=== PATIENT | male | born 1990 | race Caucasian/White ===

== ENCOUNTER 2021-09-27 12:12 | Emergency (ER) | payer OTHER ==
[2021-09-27 13:30] LABS: Urine Blood Negative (Negative); Urine Glucose Negative (Negative); Urine Protein Negative (Negative); Urine Specific Gravity >=1.030 (1.005-1.030)
[2021-09-27 13:49] LABS: Absolute Lymphocytes (CBC) 1.9 K/uL (0.7-4.9); Basophils % 0.5 % (0-1.3); Hematocrit 44.4 % (39.6-49.0); Lymphocytes % 30.4 % (15.3-44.8); MPV 7.7 fL (7.6-11.3); RBC Red Blood Cell Count 5.23 M/uL (4.33-5.43)
[2021-09-27 14:06] LABS: ALT/SGPT 70 U/L (12-78); AST/SGOT 29 U/L (15-37); Albumin 3.7 g/dL (3.4-5.0); Alkaline Phosphatase 60 U/L (45-117); BUN Blood Urea Nitrogen 9 mg/dL (7-18); Bicarbonate 29 mmol/L (21-32); Bilirubin Direct 0.1 mg/dL (0-0.2); Bilirubin Total 0.5 mg/dL (0.2-1.0); Glucose Level 100 mg/dL (74-106); Lipase 52 U/L (73-393); Potassium 3.8 mmol/L (3.5-5.1); Sodium Level 140 mmol/L (136-145)
--- NOTE | 2021-09-27 14:13 | RAD REPORT ---
[facility] - 09/27/2021 1:54 pm CLINICAL HISTORY: right flank pain COMPARISON: No comparisons TECHNIQUE: CT of the abdomen and pelvis was performed. All CT scans are performed using dose optimization technique as appropriate and may include automated exposure control or mA/KV adjustment according to patient size. FINDINGS: Lower chest: No acute abnormality. Liver: Hepatic steatosis. Biliary: No biliary ductal dilatation. Stomach: No significant focal abnormality. Duodenum: No significant focal abnormality. Pancreas: No significant abnormality. Spleen: No significant abnormality. Adrenal: No suspicious lesions. Kidney/ureter: No hydronephrosis. No renal calculi. Retroperitoneum: No retroperitoneal adenopathy. Vascular: No aneurysm. Bowel: No significant focal abnormality. Normal appendix. Peritoneum: No ascites or free air. Bladder: Grossly unremarkable. Reproductive: No adnexal masses. Bones: No acute fracture. Other: n/a IMPRESSION: No acute intra-abdominal or pelvic finding. Normal appendix.
[2021-09-27 14:18] LABS: Urine Bacteria <20 /HPF (NONE SEEN); Urine RBC <5 /HPF (NONE SEEN)
--- NOTE | 2021-09-27 15:26 | ER ---
Nurse's Notes [facility] Name: Rupert Sheppard Age: 31 yrs Sex: Male : 1990 Arrival Date: 09/27/2021 Time: 12:18 Bed 20 Private MD: Diagnosis: Low back pain Presentation: 09/27 12:38 Chief complaint: Patient states: ABD pain started last night. Took 2 tablets of ch5 antibiotic from his Dentists. Pain is still there but not as bad as last night. Coronavirus screen: Vaccine status: Patient reports receiving the 2nd dose of the covid vaccine. At this time, the client does not indicate any symptoms associated with coronavirus-19. Ebola Screen: Patient negative for fever greater than or equal to 101.5 degrees Fahrenheit, and additional compatible Ebola Virus Disease symptoms Patient denies exposure to infectious person. Patient denies travel to an Ebola-affected area in the 21 days before illness onset. Initial Sepsis Screen: Does the patient meet any 2 criteria? No. Patient's initial sepsis screen is negative. Initial Sepsis Screen: Does the patient have a suspected source of infection? No. Patient's initial sepsis screen is negative. Risk Assessment: Do you want to hurt yourself or someone else? Patient reports no desire to harm self or others. Onset of symptoms was September 26, 2021. 12:38 Method Of Arrival: Ambulatory [facility] 12:38 Acuity: KARINE 3 ch5 Triage Assessment: 12:41 General: Appears in no apparent distress. Behavior is cooperative. Pain: Complains of ch5 pain in Bilateral Flank pain. GI: Reports bloating, Flank Pain. Historical: - Allergies: 12:41 No Known Allergies; ch5 - Home Meds: 12:41 None [Active]; ch5 - PMHx: 12:41 None; ch5 - Immunization history:: Adult Immunizations up to date. - Social history:: Smoking status: Patient denies any tobacco usage or history of. - Family history:: not pertinent. - Hospitalizations: : No recent hospitalization is reported. Screenin:00 Abuse screen: Denies threats or abuse. Nutritional screening: No deficits noted. sl2 Tuberculosis screening: No symptoms or risk factors identified. Fall Risk None identified. Assessment: 13:00 General: Appears in no apparent distress. well developed, Behavior is calm, sl2 cooperative, Reports bilateral flank pain Denies fever, chills. 13:00 Pain: Complains of pain in right mid back and left mid back Pain does not radiate. Pain sl2 currently is 4 out of 10 on a pain scale. Quality of pain is described as burning, aching, Pain began. Neuro: No deficits noted. Cardiovascular: No deficits noted. Respiratory: No deficits noted. GI: No deficits noted. : No deficits noted. EENT: No deficits noted. EENT: No deficits noted. EENT: No deficits noted. Reports sore throat . Derm: No deficits noted. Musculoskeletal: No deficits noted. 14:19 Reassessment: Patient appears in no apparent distress at this time. No changes from ld1 previously documented assessment. Patient and/or family updated on plan of care and expected duration. Pain level reassessed. Patient is alert, oriented x 3, equal unlabored respirations, skin warm/dry/pink. 15:33 Reassessment: Patient appears in no apparent distress at this time. No changes from ld1 previously documented assessment. Patient and/or family updated on plan of care and expected duration. Pain level reassessed. Patient is alert, oriented x 3, equal unlabored respirations, skin warm/dry/pink. 15:33 GI: Bowel sounds present X 4 quads. Abd is soft and non tender. ld1 Vital Signs: 12:38 Pulse 87; Resp 18; Temp 97.8; Pulse Ox 100% ; Weight 181.44 kg; Height 5 ft. 9 in. ch5 (175.26 cm); Pain 3/10; 12:38 BP 146 / 82; ch5 13:00 BP 142 / 78; Pulse 85; Resp 18; Temp 97.8(O); Pulse Ox 99% ; sl2 14:19 BP 132 / 91; Pulse 82; Resp 18; Pulse Ox 99% on R/A; ld1 15:33 BP 129 / 92; Pulse 86; Resp 18; Pulse Ox 99% on R/A; ld1 12:38 Body Mass Index 59.07 (181.44 kg, 175.26 cm) 5 ED Course: 12:18 Patient arrived in ED. mr 12:41 Triage completed. 5 12:41 Arm band placed on right wrist. [facility] 12:43 Chinedu Persaud RN is Primary Nurse. 5 12:45 Drew Acosta MD is Attending Physician. rn 13:00 Patient has correct armband on for positive identification. Bed in low position. 2 13:00 Inserted saline lock: 20 gauge in left antecubital area, using aseptic technique. sl2 13:00 No provider procedures requiring assistance completed. sl2 13:[address] via wheelchair. sl2 13:54 CT Stone Protocol In Process Unspecified. EDVT 13:58 Patient moved back from [place]. 2 14:04 Strep Sent. [facility] 14:04 COVID-19 SARS RT PCR (Document "Date of Onset" if Symptomatic) Sent. [facility] 14:04 Flu Sent. [facility] 14:06 Initial lab(s) drawn, by cath lab tech, sent to lab. Urine collected: clean catch specimen, [facility] COVID swab sent to lab. Flu and/or RSV swab sent to lab. Strep swab sent to lab. 15:33 IV discontinued, intact, bleeding controlled, No redness/swelling at site. ld1 Administered Medications: No medications were administered Outcome: 15:25 Discharge ordered by MD. rn 15:33 Discharged to home ambulatory. ld1 15:33 Condition: stable 15:33 Discharge instructions given to patient, Instructed on discharge instructions, follow up and referral plans. Demonstrated understanding of instructions, follow-up care. 15:34 Patient left the ED. ld1 Signatures: Dispatcher [employer] [facility] Harriet Alegria Drew Acosta MD MD rn Martinez, Maria Dede Ugalde RN RN ld1 Chinedu Persaud RN RN [email or web address] Chelsea Barth RN RN 2 Corrections: (The following items were deleted from the chart) 12:42 12:41 PMHx: Hypertensive disorder; ch5 ch5
--- NOTE | 2021-09-27 15:26 | EDPHYS ---
Physician Documentation [facility] Name: Rupert Sheppard Age: 31 yrs Sex: Male : 1990 Arrival Date: 09/27/2021 Time: 12:18 Bed 20 Private MD: ED Physician Drew Acosta HPI: 09/27 13:30 This 31 yrs old Male presents to ER via Ambulatory with complaints of Back rn pain. 13:30 The patient presents with pain that is acute. 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 The symptoms are located in the left mid back and right mid back. Onset: The symptoms/episode began/occurred yesterday. The pain does not radiate. Associated signs and symptoms: Pertinent positives: Cough, sore throat, chills, muscle aches. Modifying factors: The patient symptoms are alleviated by nothing, the patient symptoms are aggravated by nothing. Severity of symptoms: At their worst the symptoms were moderate, in the emergency department the symptoms have improved. The patient has not experienced similar symptoms in the past. The patient has been recently seen by a physician:. Reports started having mid back pain yesterday, associated with chills, cough, wheezing, sore throat. Denies any fever. Just saw dentist and prescribed antibiotics which he took for the first time yesterday. Patient not sure if related to taking the antibiotics. No known sick contacts. Feels much better and currently denies any cough or shortness of breath/abdominal pain/vomiting/diarrhea/chest pain. States back pain has markedly improved but still not totally gone and so he wanted to get checked out. Also reports burning on the tip of his penis when he urinates.. Historical: - Allergies: 12:41 No Known Allergies; ch5 - Home Meds: 12:41 None [Active]; ch5 - PMHx: 12:41 None; ch5 - Immunization history:: Adult Immunizations up to date. - Social history:: Smoking status: Patient denies any tobacco usage or history of. - Family history:: not pertinent. - Hospitalizations: : No recent hospitalization is reported. ROS: 13:30 Constitutional: Positive for chills, negative for fever Eyes: Negative for injury, rn pain, redness, and discharge, ENT: Positive for sore throat Neck: Negative for injury, pain, and swelling, Cardiovascular: Negative for chest pain, palpitations, and edema, Respiratory: Negative for shortness of breath, cough, wheezing, and pleuritic chest pain, Abdomen/GI: Negative for abdominal pain, nausea, vomiting, diarrhea, and constipation, Back: Positive for back pain, negative for injury : Positive for burning to the tip of the penis MS/Extremity: Negative for injury and deformity, Skin: Negative for injury, rash, and discoloration, Neuro: Negative for headache, weakness, numbness, tingling, and seizure. 13:30 All other systems are negative. Exam: 13:30 Constitutional: Overweight male, no acute distress, using phone when I walked into the rn room Head/Face: Normocephalic, atraumatic. Eyes: Periorbital areas with no swelling, redness, or edema. ENT: No stridor Cardiovascular: Regular rate and rhythm. No pulse deficits. Respiratory: Speaking full sentences, unlabored. No increased work of breathing, no retractions or nasal flaring. Abdomen/GI: Soft, nontender, no peritoneal signs or guarding Back: No spinal tenderness. No costovertebral tenderness. Full range of motion. Skin: Warm, dry MS/ Extremity: Pulses equal, no cyanosis. Neurovascular intact. Full, normal range of motion. Equal circumference. Neuro: Awake and alert, GCS 15 Vital Signs: 12:38 Pulse 87; Resp 18; Temp 97.8; Pulse Ox 100% ; Weight 181.44 kg; Height 5 ft. 9 in. ch5 (175.26 cm); Pain 3/10; 12:38 BP 146 / 82; ch5 13:00 BP 142 / 78; Pulse 85; Resp 18; Temp 97.8(O); Pulse Ox 99% ; sl2 14:19 BP 132 / 91; Pulse 82; Resp 18; Pulse Ox 99% on R/A; ld1 15:33 BP 129 / 92; Pulse 86; Resp 18; Pulse Ox 99% on R/A; ld1 12:38 Body Mass Index 59.07 (181.44 kg, 175.26 cm) ch5 MDM: 12:45 Patient medically screened. rn 15:23 Differential diagnosis: Hydronephrosis sprain, Ureterolithiasis TIA, viral syndrome, rn muscle spasm, Covid, medication reaction. Data reviewed: vital signs, nurses notes, lab test result(s), radiologic studies, CT scan, and as a result, I will discharge patient. Counseling: I had a detailed discussion with the patient and/or guardian regarding: the historical points, exam findings, and any diagnostic results supporting the discharge/admit diagnosis, lab results, radiology results, the need for outpatient follow up, to return to the emergency department if symptoms worsen or persist or if there are any questions or concerns that arise at home. Response to treatment: the patient's symptoms have markedly improved after treatment, and as a result, I will discharge patient. Special discussion: I discussed with the patient/guardian in detail that at this point there is no indication for admission to the hospital. It is understood, however, that if the symptoms persist or worsen the patient needs to return immediately for re-evaluation. ED course: No acute findings and blood work/CT scan/swabs. Stable vitals. Patient in room comfortable and using phone. Will DC home with PCP follow-up and return precautions given.. 09/27 12:54 Order name: Basic Metabolic Panel; Complete Time: 14:15 rn 09/27 12:54 Order name: CBC with Diff; Complete Time: 14: rn 09/27 12:54 Order name: Hepatic Function; Complete Time: 14:15 rn 09/27 12:54 Order name: Lipase; Complete Time: 14:15 rn 09/27 12:54 Order name: Urine Microscopic Only; Complete Time: 15:19 rn 09/27 12:54 Order name: Flu rn 09/27 12:54 Order name: IV Saline Lock; Complete Time: 13:37 rn 09/27 12:54 Order name: Labs collected and sent; Complete Time: 13:37 rn 09/27 12:54 Order name: CT Stone Protocol; Complete Time: 14:15 rn 09/27 12:54 Order name: Urine Dipstick-Ancillary (obtain specimen); Complete Time: 13:37 rn 09/27 12:54 Order name: Strep; Complete Time: 15:19 rn 09/27 12:54 Order name: COVID-19 SARS RT PCR (Document "Date of Onset" if Symptomatic); Complete rn Time: 15:09/27 13:30 Order name: Urine Dipstick-Ancillary; Complete Time: 14:15 EDMS 09/27 14:58 Order name: Throat Culture EDMS Administered Medications: No medications were administered Disposition Summary: 09/27/21 15:25 Discharge Ordered Location: Home rn Problem: new rn Symptoms: have improved rn Condition: Stable rn Diagnosis - Low back pain rn Followup: rn - With: Private Physician - When: As needed - Reason: Recheck today's complaints, Re-evaluation by your physician Discharge Instructions: - Discharge Summary Sheet rn - Acute Back Pain, Adult rn Forms: - Medication Reconciliation Form rn - Thank You Letter rn - Antibiotic patternmaker wood - Prescription Opioid Use rn Signatures: Dispatcher [employer] EDDrew Cha MD MD rn Heath, Christopher, RN RN ch5 Corrections: (The following items were deleted from the chart) 12:42 12:41 PMHx: Hypertensive disorder; ch5 ch5
[2021-09-27 15:55] VITALS: TEMP 97.8
[2021-09-27 15:56] VITALS: O2SAT 99
[2021-09-27 15:59] VITALS: BP 129/92
== END 2021-09-27 15:34 | disposition home or self-care (01) ==
LOC: ER 12:12
DX: M54.50 Low back pain, unspecified (principal); Z20.822 Contact with and (suspected) exposure to COVID-19
CPT/HCPCS: 87070; 85025; 80048; 36415; 80076; 87081; 83690; 87804 ×2; 76377; 74176; 99284; U0003; 81003; 81015